=== PATIENT | female | born 1985 | race Asian ===

== ENCOUNTER → 2020-02-03 | Outpatient (CLI) | payer OTHER ==
--- NOTE | 2020-02-03 14:33 | XR ---
EXAMINATION TYPE: XR thoracic spine 3 views, XR lumbosacral spine 5 views DATE OF EXAM: 02/03/2020 COMPARISON: NONE HISTORY: 34-year-old female with thoracic back pain, M54.6 FINDINGS: Thoracic spine: 12 rib-bearing thoracic vertebral bodies. All pedicles are visualized. Vertebral body heights are pre served and alignment is maintained. Lumbar spine: 5 lumbar type vertebral bodies. No pars interarticularis defect seen. Vertebral body heights are pres erved and alignment is maintained. Disc interspaces are relatively maintained. IMPRESSION (thoracic and lumbar spine): No vertebral compression collapse or malalignment. No significant degenerative change appreciated rad iographically.
== END | disposition home or self-care (01) ==
LOC: RADXRMAIN 10:39
PROVIDERS: ATTEND Family Medicine
DX: M54.6 Pain in thoracic spine (principal)
CPT/HCPCS: 72070; 72110

== ENCOUNTER → 2020-02-04 | Outpatient (CLI) | payer OTHER ==
[2020-02-04 11:12] LABS: Basophils # (A) 0.1 k/uL (0-0.2); Basophils % (A) 1 %; Eosinophils # (A) 0.2 k/uL (0-0.7); Eosinophils % (A) 3 %; HCT 39.2 % (34.0-46.0); HGB 12.7 gm/dL (11.4-16.0); Lymphocytes # (A) 1.4 k/uL (1.0-4.8); Lymphocytes % (A) 22 %; MCH 30.4 pg (25.0-35.0); MCHC 32.3 g/dL (31.0-37.0); Mean Platelet Volume 6.9; Monocytes # (A) 0.3 k/uL (0-1.0); Monocytes % (A) 4 %; Neutrophils # (A) 4.1 k/uL (1.3-7.7); Neutrophils % (A) 68 %; Platelet Count 275 k/uL (150-450); RBC 4.17 m/uL (3.80-5.40); RDW 12.8 % (11.5-15.5); WBC 6.1 k/uL (3.8-10.6)
[2020-02-04 15:48] LABS: African American GFR (CKD) 129.2 (60.0-200.0); Albumin 4.2 g/dL (3.80-4.90); Albumin/Globulin Ratio 1.56 (1.60-3.17); Anion Gap 7.1 mmol/L (4.00-12.00); Calcium 9.2 mg/dL (8.7-10.3); Carbon Dioxide 25.9 mmol/L (21.6-31.8); Chol/HDL Ratio 3.58; Globulin 2.7 g/dL (1.6-3.3); LDL Cholesterol,Calculated 90.2 mg/dL (0.0-131.0); Non-African American GFR(CKD) 111.5 (60.0-200.0); Potassium 4.5 mmol/L (3.5-5.5); Total Bilirubin 0.7 mg/dL (0.2-1.2); Total Protein 6.9 g/dL (6.2-8.2); VLDL Calculation 20.8 mg/dL (5.00-40.00)
== END | disposition home or self-care (01) ==
LOC: LABWHC1 09:46
PROVIDERS: ATTEND Family Medicine
DX: Z00.00 Encounter for general adult medical examination without abnormal findings (principal)
CPT/HCPCS: 36415; 80053; 80061; 85025

== ENCOUNTER 2020-09-10 07:22 | Day surgery (SDC) | payer BC, OTHER ==
[2020-09-08 09:43] VITALS: BMI 21.9
[~2020-09-10 07:22] MED LIST: LACTATED RINGERS 1,000 ML IV SCH
[2020-09-10 07:42] VITALS: TEMP 97.8
[2020-09-10] MEDS ORDERED: LACTATED RINGERS 1,000 ML IV ONE (07:42)
[2020-09-10] MEDS ORDERED: PROPOFOL 10 MG/ML 20 ML VIAL IV ONE (08:30)
[2020-09-10] MEDS ORDERED: LIDOCAINE 1% INJ 10MG/ML (20 ML MDV) ONE (08:30)
--- NOTE | 2020-09-10 08:40 | P.GSHP ---
History of Present Illness H&P Date: 09/10/20 Chief Complaint: GERD This is a 35-year-old female is a complete of GERD. Patient right epigastric pain after eating. She was a safer EGD. Past Medical History Past Medical History: GERD/Reflux Additional Past Medical History / Comment(s): "low blood pressure", COVID 08/22/20-resolved now/denies symptoms, History of Any Multi-Drug Resistant Organisms: None Reported Past Surgical History: Section Past Anesthesia/Blood Transfusion Reactions: Motion Sickness Smoking Status: Never smoker - Past Family History Mother Family Medical History: Cancer Medications and Allergies Home Medications Medication Instructions Recorded Confirmed Type Multivitamins, Thera [Multivitamin 1 tab PO DAILY 09/08/20 09/08/20 History (formulary)] Allergies Allergy/AdvReac Type Severity Reaction Status Date / Time No Known Allergies Allergy Verified 09/08/20 09:31 Surgical - Exam Vital Signs Temp Pulse Resp BP Pulse Ox 97.8 F 78 18 112/57 99 09/10/20 07:41 09/10/20 07:41 09/10/20 07:41 09/10/20 07:41 09/10/20 07:41 - General well developed, well nourished, no distress - Eyes PERRL - ENT normal pinna - Neck no masses - Respiratory normal expansion - Cardiovascular Rhythm: regular - Abdomen Abdomen: soft, non tender Assessment and Plan Assessment: GERD we will perform EGD.
--- NOTE | 2020-09-10 08:47 | P.OP ---
Date of Procedure: 09/10/20 Preoperative Diagnosis: Epigastric pain GERD Postoperative Diagnosis: Antral gastritis Procedure(s) Performed: EGD Anesthesia: MAC Surgeon: Pawan Diaz Pathology: other (Antrum) Condition: stable Disposition: PACU Description of Procedure: The patient's placed on the endoscopy table in the lateral position. She received IV sedation. The gastroscope placed oropharynx past esophagus and stomach. Scope was then placed through the pylorus. The first and second portion of the duodenum. Normal. Scope was then brought back the antrum this was mildly inflamed. A biopsies performed. The scope was unretroflexed and remainder stomach appeared normal. The GE junction was at 47 is. The distal es ophagusAppeared normal. The proximal esophagus appeared normal. Scope was withdrawn for patient. Due to the patient's minimal findings a HIDA scan was ordered
[2020-09-10 09:03] VITALS: BP 104/70; PULSE 66; RESP 16
== END 2020-09-10 09:43 | disposition home or self-care (01) ==
LOC: ORWHC2ENDO 07:22
PROVIDERS: ATTEND Surgery
DX: K29.50 Unspecified chronic gastritis without bleeding (principal); K21.9 Gastro-esophageal reflux disease without esophagitis; Z86.16 Personal history of COVID-19
CPT/HCPCS: 81025; 43239; J2001; J2704; 88305; 88342

== ENCOUNTER → 2020-09-17 | Outpatient (CLI) | payer BC, OTHER ==
--- NOTE | 2020-09-17 18:27 | NM ---
EXAMINATION TYPE: NM hepatobiliary w CCK DATE OF EXAM: 09/17/2020 COMPARISON: NONE HISTORY: Unspecified abdominal pain TECHNIQUE: After the intravenous administration of 5.3 mCi Tc 99m Mebrofenin hepatobiliary scintigrap hy is performed. Immediate images post injection. FINDINGS: There is satisfactory initial accumulation of tracer by the liver. The gallbladder is visualized at 4 minutes. The small bowel activity is noted within 44 minutes. At one hour CCK was administered, p atient was injected with 1.1 mcg of Kinevac, and gallbladder ejection fraction is calculated at 21 %, the lower limit of normal. Therefore there is no scintigraphic evidence of cystic or common bile du ct obstruction to suggest acute cholecystitis. IMPRESSION: Findings may represent gallbladder dyskinesia
== END | disposition home or self-care (01) ==
LOC: RADNMMAIN 13:41
PROVIDERS: ATTEND Surgery
DX: R10.9 Unspecified abdominal pain (principal)
CPT/HCPCS: 78227; A9537; J2805

== ENCOUNTER 2021-07-23 07:29 | Inpatient (IN) | payer BC, OTHER ==
[2021-07-23 08:22] LABS: Appearance,Urine Cloudy (Clear); Bacteria,Urine Occasional /hpf; Bilirubin,Urine Negative (Negative); Blood,Urine Large (Negative); Color,Urine Light Yellow; Glucose,Urine (UA) Negative (Negative); Ketones,Urine Negative (Negative); Leukocyte Esterase,Urine Small (Negative); Nitrite,Urine Negative (Negative); PH, Urine 6.5 (5.0-8.0); Protein,Urine Negative (Negative); RBC,Urine 28 /hpf (0-5); Specific Gravity,Urine 1.005 (1.001-1.035); Squamous Epithelial Cell,Urine 4 /hpf (0-4); Urobilinogen,Urine <2.0 mg/dL (<2.0); WBC,Urine 10 /hpf (0-5)
[2021-07-23] MEDS: LACTATED RINGERS 1,000 ML IV SCH ×4 (09:15→19:43)
[2021-07-23] MEDS ORDERED: LACTATED RINGERS 1,000 ML IV SCH (09:15)
[2021-07-23 09:30] LABS: Basophils % (A) 1 %; Eosinophils # (A) 0.1 k/uL (0-0.7); Eosinophils % (A) 1 %; HCT 36.8 % (34.0-46.0); HGB 12.2 gm/dL (11.4-16.0); Lymphocytes % (A) 16 %; MCH 31.9 pg (25.0-35.0); MCHC 33.2 g/dL (31.0-37.0); MCV 96.1 fL (80.0-100.0); Mean Platelet Volume 7.9; Monocytes # (A) 0.4 k/uL (0-1.0); Monocytes % (A) 6 %; Neutrophils # (A) 4.9 k/uL (1.3-7.7); Neutrophils % (A) 75 %; Platelet Count 183 k/uL (150-450); RBC 3.83 m/uL (3.80-5.40); RDW 13.8 % (11.5-15.5); WBC 6.5 k/uL (3.8-10.6)
[2021-07-23] MEDS ORDERED: LACTATED RINGERS 1,000 ML IV ONE (09:59)
[2021-07-23] MEDS ORDERED: CITRIC ACID-SODIUM CITRATE 15 ML CUP PO ONE (09:59)
--- NOTE | 2021-07-23 12:12 | P.HPOB ---
History of Present Illness H&P Date: 07/23/21 Chief Complaint: Bleeding. This patient is a pleasant 35-year-old 2 para 1 female estimated date of confinement 08/19/2021 estimated gestational age 36 and one sevenths weeks who is admitted to labor and delivery with complaints of vaginal bleeding that started this morning. Patient was closed in the office is now 3-4 cm dilated with bloody show and thought to be in early active labor. She has had a previous section of unknown scar and therefore is a planned repeat C- section. Patient is also requesting permanent sterilization. Patient's is complicated by advanced maternal age for which she did do genetic testing on and had a normal level III ultrasound per maternal medicine. Patient now presents for delivery due to active labor and previous section with unknown scar. Review of Systems Genitourinary: Reports Menstruation: Reports amenorrhea Past Medical History Past Medical History: GERD/Reflux Additional Past Medical History / Comment(s): "low blood pressure", COVID 08/22/20-resolved now/denies symptoms History of Any Multi-Drug Resistant Organisms: None Reported Past Surgical History: Section Past Anesthesia/Blood Transfusion Reactions: Motion Sickness Past Psychological History: No Psychological Hx Reported Smoking Status: Never smoker Past Alcohol Use History: None Reported Past Drug Use History: None Reported - Past Family History Mother Family Medical History: Cancer Medications and Allergies Home Medications Medication Instructions Recorded Confirmed Type Multivitamins, Thera [Multivitamin 1 tab PO DAILY 09/08/20 07/23/21 History (formulary)] Aspirin 81 mg PO DAILY 07/23/21 07/23/21 History Allergies Allergy/AdvReac Type Severity Reaction Status Date / Time No Known Allergies Allergy Verified 07/23/21 07:47 Exam Vital Signs Temp Pulse Resp BP 07/23/21 07:46 97.5 F L 68 16 103/70 Intake and Output 07/22/21 07/23/21 07/23/21 22:59 06:59 14:59 Other: Weight 66.224 kg - OBG Physical Exam Abdomen: bowel sounds normal, no diffuse tenderness, no bruit present, no guarding noted, no hepatomegaly, no splenomegaly, no mass Vulva: both: normal Vagina: normal moisture, no discharge Cervix: no lesion (Cervix is 3-4 cm dilated with bloody show), no discharge Uterus: enlarged Results blood work shows she is A positive, rubella immune, RPR nonreactive, hepatitis B is negative, HIV is nonreactive, maternity 21 showed 46 XY, Glucola was 150 with a normal three-hour gtt., ultrasounds including level III were normal. Group B strep was negative. Result Diagrams: 07/23/21 09:10 Abnormal Lab Results - Last 24 Hours (Table) 07/23/21 Range/Units 08:00 Urine Appearance Cloudy H (Clear) Urine Blood Large H (Negative) Ur Leukocyte Esterase Small H (Negative) Urine RBC 28 H (0-5) /hpf Urine WBC 10 H (0-5) /hpf Urine Bacteria Occasional H (None) /hpf Assessment and Plan Assessment: This is a pleasant 35-year-old 2 para 1 female 36 and one sevenths weeks gestation in active labor with previous section of unknown scar. Plan is to proceed with delivery by repeat section and patient's also requesting permanent sterilization. Patient understands a tubal ligation is considered permanent does have a failure rate however of 3-4 per thousand procedures done. She understands that surgery itself and apparently has risks including risks of infection, bleeding, possible injury bowel, bladder, vessels, and/or other organs. All the patient's questions are answered and a written consent is obtained. (1) 36 to 37 weeks gestation of Current Visit: Yes Status: Acute Code(s): GKO0381 - SNOMED Code(s): 594486435 (2) Previous delivery affecting Current Visit: Yes Status: Acute Code(s): O34.219 - MATERNAL CARE FOR UNSP TYPE SCAR FROM PREVIOUS DEL SNOMED Code(s): 700026596 (3) Family planning Current Visit: Yes Status: Acute Code(s): Z30.09 - ENCOUNTER FOR OTH GENERAL CNSL AND ADVICE ON CONTRACEPTION SNOMED Code(s): 763133441 (4) Elderly multigravida Current Visit: Yes Status: Acute Code(s): O09.529 - SUPERVISION OF ELDERLY MULTIGRAVIDA, UNSPECIFIED TRIMESTER SNOMED Code(s): 618235334 (5) Normal labor Current Visit: Yes Status: Acute Code(s): O80 - ENCOUNTER FOR FULL-TERM UNCOMPLICATED DELIVERY; Z37.9 - OUTCOME OF DELIVERY, UNSPECIFIED SNOMED Code(s): 07386523
[2021-07-23] MEDS ORDERED: ONDANSETRON 4 MG/2 ML VIAL ONE (12:21)
[2021-07-23] MEDS ORDERED: KETOROLAC 15 MG/ML 1 ML VIAL ONE (12:21)
[2021-07-23] MEDS ORDERED: OXYTOCIN 30 UNITS/500 ML NS BAG IV ONE (12:21)
[2021-07-23] MEDS ORDERED: DEXAMETHASONE SOD PHOSPHATE 4 MG/ML 1 ML VIAL ONE (12:21)
[2021-07-23] MEDS ORDERED: ePHEDrine 50 MG/ML 1 ML VIAL ONE (12:21)
[2021-07-23] MEDS ORDERED: MORPHINE SULFATE (PF) 0.3 MG/0.3 ML SYR ONE (12:21)
--- NOTE | 2021-07-23 13:17 | P.OP ---
Date of Procedure: 07/23/21 Preoperative Diagnosis: #1: 36 and one sevenths week intrauterine . #2: Previous section with unknown scar. #3: Labor #4: Elderly multi parity #5: Multi parity desires permanent sterilization Postoperative Diagnosis: Same Procedure(s) Performed: Repeat low transverse section and bilateral partial salpingectomy. Anesthesia: spinal Surgeon: Aristides Davis [employer] Attendant #1: Archana Irving Estimated Blood Loss (ml): 800 Pathology: other (Placenta and bilateral fallopian tube segments) Condition: stable Disposition: floor Indications for Procedure: Please see dictated H&P for intimate details of this patient's admission. In b rief summary this is a pleasant 35-year-old 2 para 1 female 36 and one sevenths weeks gestation who is admitted to labor and delivery with complaints of vaginal bleeding and found to be in early active labor. Patient's had a previous section with unknown scar and therefore was scheduled for repeat section she is also requesting permanent sterilization. Patient understands that a tubal ligation is considered permanent, there is a failure rate of approximately 3-4 per thousand procedures done. She understands if she did become she is a 50% chance of tubal or an ectopic . Patient also understands surgery itself has risks including risks of infection, bleeding, possible injury bowel, bladder, vessels, and/or other organs. All the patient's questions are answered and a written consent obtained. Operative Findings: This is a vigorous viable male infant Apgars were 8 and 9 delivery time is 1236 hrs. had spontaneous respirations and good cry. The uterus, tubes, ovaries appear normal for term gestation. Description of Procedure: This patient has a La catheter placed to straight drain. She is subsequently taken to the operating room where she is sat up and spinal anesthetic is administered without incident. With an adequate level of anesthesia she has abdominal prep and drape. Scalpels and taken in the previous Pfannenstiel incision is then incised. A second scalpel is taken down the fascia the fascia scored with a knife. Fascial incision extended bilaterally using the Conner scissors. Fascia is then dissected off the rectus muscles sharply. Peritoneum was identified and entered sharply. Peritoneal incision extended superior and inferiorly without difficulty. There is a large amount of vascularity in the bladder peritoneal area we do our best to avoid this. Bladder blade is placed. Bladder peritoneum taken down sharply. Scalpels and taken a low transverse uterine incision is then made. Using a hemostat I into the uterine cavity bluntly and there is loss of clear fluid. This incision is then extended bluntly and the infant's head was guided through the incision with fundal pressure. Mouth and nares are bulb suctioned. There is no evidence of a nuchal cord. With more fundal pressure we then have delivery the rest this 's body. This is a vigorous viable male infant Apgars are 8 and 9 delivery time is 1236 hrs. After delivery of the infant the umbilical cord is doubly clamped and cut and the infant is handed off to the nurses in attendance. The placenta is then manually extracted intact. Uterus is then externalized and the uterine incision demarcated with Jimenez clamps. All debris is removed from the uterus. Uterine incision then closed using 0 Vicryl running locked fashion 2 layers. Excellent hemostasis is noted. This time I turned my attention a left fallopian tube approximately 4 cm from the cornual insertion I make a small window through the mesial salpinx with Bovie cautery. Using a 2-0 silk I doubly ligate a 2 cm segment of the fallopian tube.'s is excised with Metzenbaum scissors then handed off to pathology. Cauterization done of the tubal ends. Excellent hemostasis is noted. Then turned my attention of the right fallopian tube and using a similar technique we have similar results. This done the uterus is placed back in the abdomen. Final inspection of the uterine incision fallopian tube she'll to be hemostatic. The parietal peritoneum was then closed using 0 Vicryl running fashion. This time I note there is some bleeding from the peritoneum just above the bladder. Therefore I opened back up the peritoneal incision and doing a interrupted 0 Vicryl suture and 3-0 Vicryl suture I ligate this area. Hemostasis appears to be achieved. There is a small area of hematoma about 2-3 cm. This does not appear to be expanding. With hemostasis assured the bladder peritoneum was then reapproximated. Rectus muscles are very and I cannot reapproximate them. Using the 0 PDS I then reapproximated the fascial incision. This is intact and hemostatic. Subcutaneous tissues and closed using a 3-0 Vicryl. Skin is and closed using anabella. All counts are correct 3. There are no complications. Infant is taken special care for observation due to prematurity and mother taken her birthing suite in satisfactory condition.
[2021-07-23] MEDS ORDERED: SIMETHICONE 80 MG CHEWABLE PO PRN (13:21)
[2021-07-23] MEDS ORDERED: diphenhydrAMINE 25 MG CAP PO PRN (13:21)
[2021-07-23] MEDS ORDERED: LANOLIN CREAM 5 GM TUBE TOPICAL PRN (13:21)
[2021-07-23] MEDS ORDERED: ZOLPIDEM 5 MG TAB PO PRN (13:21)
[2021-07-23] MEDS ORDERED: NALOXONE 0.4 MG/ML 1 ML VIAL IV PRN (13:21)
[2021-07-23] MEDS ORDERED: ONDANSETRON 4 MG/2 ML VIAL IVP PRN (13:21)
[2021-07-23] MEDS ORDERED: METOCLOPRAMIDE 5 MG/ML 2 ML VIAL IVP PRN (13:21)
[2021-07-23] MEDS ORDERED: diphenhydrAMINE 50 MG/ML 1 ML VIAL IVP PRN (13:21)
[2021-07-23] MEDS ORDERED: OXYTOCIN 30 UNITS/500 ML NS 30 UNIT in SALINE 1 500ML.BAG IV SCH (13:21)
--- NOTE | 2021-07-23 17:47 | P.MSEPDOC ---
Presenting Problems - Arrival Data Date of Arrival on Unit: 07/23/21 Time of Arrival on Unit: 10:00 Mode of Transport: Wheelchair - Complaint OB-Reason for Admission/Chief Complaint: Vaginal Bleeding Medical History - Information : 2 Para: 1 Term: 1 : 0 Abortions: Spontaneous or Elective: 0 Number of Living Children: 1 - Gestational Age Gestational Age by SARA (wks/days): 36 Weeks and 1 Days - History Complications: Prior Review of Systems - Review of Systems Constitutional: No problems Breast: No problems ENT: No problems Cardiovascular: No problems Respiratory: No problems Gastrointestinal: No problems Genitourinary: No problems Musculoskeletal: No problems Neurological: No problems Skin: No problems Vital Signs - Temperature Temperature: 97.4 F Temperature Source: Temporal Artery Scan - Pulse Right Pulse Rate: 50 Pulse Assessment Method: Automatic Cuff - Respirations Respiratory Rate: 16 Oxygen Delivery Method: Room Air O2 Sat by Pulse Oximetry: 98 - Blood Pressure Right Arm Blood Pressure: 114/63 Blood Pressure Mean: 80 Blood Pressure Source: Automatic Cuff Medical Screen Scoring - Cervical Exam Dilation (cm): 3.5 Effacement (%): 70 Station: -3 Membranes: Intact - Uterine Contractions Frequency From (mins): 2 Frequency To (mins): 5 Duration From (seconds): 60 Duration To (seconds): 90 Intensity: Mild Resting: Soft to palpation - Assessment - Baby A Baseline FHR: 150 Heart Rate - NICHD Category: Category I (Normal) NST: Reactive Physician Notification - Physician Notified Physician Notified Date: 07/23/21 Physician Notified Time: 08:52 Physician: Aristides Davis New Order Received: Yes (start IV, send labs, check in 1 hour) - Notification Comment Comment: made cervical changed, admit for RCS and Tubal at 1000 Maternal Triage Index - Prompt/Priority 3 Prompt Priority 3: Yes Criteria Met for Priority 3: 36 1/7 RCS Cervical change, bloody show Disposition - Disposition OB Disposition: Admit, LDRP Suite I agree with the RN Medical Screening Exam: Yes Case reviewed; plan agreed upon as documented in EMR&OBIX.: Yes Diagnosis: SPOTTING COMPLICATING , THIRD TRIMESTER
[2021-07-23] MEDS: SENNOSIDES-DOCUSATE SODIUM 1 EACH TAB PO SCH (20:46)
[2021-07-23] MEDS: KETOROLAC 15 MG/ML 1 ML VIAL IVP SCH (20:46)
[2021-07-24] MEDS: ACETAMINOPHEN TAB 500 MG TAB PO PRN ×3 (00:56→20:02)
[2021-07-24] MEDS: LACTATED RINGERS 1,000 ML IV SCH ×3 (00:56→19:53)
[2021-07-24] MEDS: KETOROLAC 15 MG/ML 1 ML VIAL IVP SCH ×3 (06:01→19:53)
[2021-07-24 08:10] LABS: Basophils % (A) 0 %; Eosinophils % (A) 0 %; HCT 30.1 % (34.0-46.0); HGB 10.2 gm/dL (11.4-16.0); Lymphocytes # (A) 1.5 k/uL (1.0-4.8); Lymphocytes % (A) 15 %; MCH 32.8 pg (25.0-35.0); MCHC 33.9 g/dL (31.0-37.0); MCV 96.8 fL (80.0-100.0); Mean Platelet Volume 8.3; Monocytes # (A) 0.6 k/uL (0-1.0); Monocytes % (A) 5 %; Neutrophils # (A) 7.9 k/uL (1.3-7.7); Neutrophils % (A) 78 %; Platelet Count 166 k/uL (150-450); RBC 3.11 m/uL (3.80-5.40); RDW 14.1 % (11.5-15.5); WBC 10.2 k/uL (3.8-10.6)
[2021-07-24] MEDS: SENNOSIDES-DOCUSATE SODIUM 1 EACH TAB PO SCH ×2 (09:08→20:02)
--- NOTE | 2021-07-24 09:26 | P.PNOBGPC ---
Subjective - Subjective Principal diagnosis: S/P RLTCS POD #1 Interval history: Patient seen and examined. Denies nausea, vomiting, chest pain, shortness of breath or calf pain. She says she's passing flatus and tolerating regular diet. Patient reports: Reports appetite normal, Reports pain well controlled, Reports ambulating normally : doing well Objective - Vital Signs Latest vital signs: Vital Signs Temp Pulse Resp BP Pulse Ox 07/24/21 08:00 98.2 F 98 16 88/55 97 07/24/21 04:00 98.2 F 59 L 16 97/60 99 07/24/21 00:00 98.6 F 58 L 16 97/54 98 07/23/21 20:00 99.2 F 59 L 16 94/58 99 07/23/21 17:47 97.4 F L 50 L 16 114/63 98 07/23/21 15:20 97.4 F L 50 L 16 114/63 98 07/23/21 14:50 54 L 16 117/62 07/23/21 14:20 96.2 F L 60 16 108/60 98 07/23/21 14:10 52 L 16 118/63 98 07/23/21 13:55 62 16 119/63 96 07/23/21 13:40 53 L 16 118/60 98 07/23/21 13:25 63 16 119/61 98 07/23/21 13:21 98 07/23/21 13:10 97.3 F L 66 16 120/61 99 Intake and Output 07/23/21 07/24/21 07/24/21 22:59 06:59 14:59 Output Total 375 600 Balance -375 -600 Output: Urine 250 600 Output, Quantitative 125 Blood Loss Other: Voiding Method Indwelling Catheter - Exam Lungs: bilateral: normal Chest: Normal S1, Normal S2 Extremities: Present: normal Abdomen: Present: normal appearance, soft. Absent: distention, tenderness Incision: Present: normal, dry, intact Uterus: Present: normal, firm - Labs Labs: Abnormal Lab Results - Last 24 Hours (Table) 07/24/21 Range/Units 07:47 RBC 3.11 L (3.80-5.40) m/uL Hgb 10.2 L (11.4-16.0) gm/dL Hct 30.1 L (34.0-46.0) % Neutrophils # 7.9 H (1.3-7.7) k/uL Assessment and Plan (1) Status post repeat low transverse section Current Visit: Yes Status: Acute Code(s): Z98.891 - HISTORY OF UTERINE SCAR FROM PREVIOUS SURGERY SNOMED Code(s): 217014767 Plan: 1. increase ambulation 2. po pain meds
[2021-07-24] MEDS: IBUPROFEN 600 MG TAB PO PRN ×2 (13:53→23:43)
--- NOTE | 2021-07-24 17:55 | P.PN ---
Progress Note - Text 07/24/21 712am 36-year-old female status post with spinal Duramorph. Patient seen and evaluated for postop pain control she has a VAS of 4 with no complains of nausea she does have complaints of pruritus should subside.
[2021-07-25 08:56] VITALS: BP 88/44; PULSE 69; RESP 16; TEMP 98.2
[2021-07-25] MEDS: SENNOSIDES-DOCUSATE SODIUM 1 EACH TAB PO SCH (08:59)
[2021-07-25] MEDS: IBUPROFEN 600 MG TAB PO PRN (10:32)
--- NOTE | 2021-07-25 11:18 | P.PNOBGPC ---
Subjective - Subjective Principal diagnosis: Status post repeat low transverse postop day #2 Interval history: Patient seen and examined. Denies nausea, vomiting, chest pain, shortness of breath or any calf pain. Patient reports: Reports appetite normal, Reports voiding normally, Reports pain well controlled, Reports ambulating normally : doing well Objective - Vital Signs Latest vital signs: Vital Signs Temp Pulse Resp BP Pulse Ox 07/25/21 08:00 98.2 F 69 16 88/44 07/24/21 23:57 98.4 F 63 19 98/54 99 07/24/21 16:00 98.1 F 61 16 83/48 07/24/21 11:43 98.4 F 67 16 89/51 Intake and Output 07/24/21 07/25/21 07/25/21 22:59 06:59 14:59 Output Total 300 Balance -300 Output: Urine 300 Other: # Voids 1 - Exam Lungs: bilateral: normal Chest: Normal S1, Normal S2 Extremities: Present: normal Abdomen: Present: normal appearance, soft. Absent: distention, tenderness Incision: Present: normal, dry, intact Uterus: Present: normal, firm Assessment and Plan (1) Status post repeat low transverse section Current Visit: Yes Status: Acute Code(s): Z98.891 - HISTORY OF UTERINE SCAR FROM PREVIOUS SURGERY SNOMED Code(s): 514915522 Plan: 1. Continue postoperative care
== END 2021-07-25 15:05 | disposition home or self-care (01) | DRG 785 ==
LOC: FBPOP 07:29 → 4FBP 09:44
PROVIDERS: ADMIT Obstetrics & Gynecology; ATTEND Obstetrics & Gynecology
PROC: 0UB70ZZ Excision of Bilateral Fallopian Tubes, Open Approach (ICD-10-PCS; 2021-07-23)
PROC: 10D00Z1 Extraction of Products of Conception, Low, Open Approach (ICD-10-PCS; principal; 2021-07-23 11:56)
DX: O34.211 Maternal care for low transverse scar from previous cesarean delivery (principal); Z37.0 Single live birth; Z3A.37 37 weeks gestation of pregnancy; Z30.2 Encounter for sterilization; Z79.82 Long term (current) use of aspirin; O67.9 Intrapartum hemorrhage, unspecified
CPT/HCPCS: 59025; 81001; 85025; 86850; 86900; 86901; 99214

== ENCOUNTER → 2024-07-09 | Outpatient (CLI) | payer BC ==
[2024-07-09 16:51] LABS: Basophils # (A) 0.04 X 10*3/uL (0.00-0.10); Basophils % (A) 0.7 %; Eosinophils % (A) 1.7 %; HCT 40.2 % (37.2-46.3); HGB 13.2 g/dL (12.0-15.0); Lymphocytes # (A) 1.73 X 10*3/uL (0.90-5.00); Lymphocytes % (A) 29.9 %; MCH 30.2 pg (27.0-32.0); MCHC 32.8 g/dL (32.0-37.0); Mean Platelet Volume 10.2 FL (9.5-12.2); Monocytes % (A) 5.2 %; NRBC Per 100 WBC 0 X 10*3/uL (0.00-0.01); Neutrophils % (A) 62.2 %; Platelet Count 260 X 10*3/uL (140-440); RBC 4.37 X 10*6/uL (4.10-5.20); RDW 12.7 % (11.5-14.5); WBC 5.79 X 10*3/uL (4.50-10.00)
[2024-07-09 18:06] LABS: BUN/Creat Ratio 20.14 Ratio (12.00-20.00); Blood Urea Nitrogen 14.1 mg/dL (9.0-27.0); Carbon Dioxide 22.5 mmol/L (21.6-31.8); Chloride 106 mmol/L (96-109); Glucose 96 mg/dL (70-110); Potassium 4.2 mmol/L (3.5-5.5); Sodium 138 mmol/L (135-145)
[2024-07-09 18:07] LABS: ALT 14 U/L (8-44); AST 18 U/L (13-35); Albumin 4.4 g/dL (3.8-4.9); Albumin/Globulin Ratio 1.47 Ratio (1.60-3.17); Alkaline Phosphatase 32 U/L (41-126); Total Bilirubin 0.6 mg/dL (0.3-1.2); Total Protein 7.4 g/dL (6.2-8.2)
== END | disposition home or self-care (01) ==
LOC: LABWHC1 10:22
PROVIDERS: ATTEND Family Medicine
DX: Z00.00 Encounter for general adult medical examination without abnormal findings (principal); K29.80 Duodenitis without bleeding
CPT/HCPCS: 36415; 80053; 85025